=== PATIENT | female | born 1990 | race Two or more races ===

== ENCOUNTER 2017-12-17 00:01 | Emergency (ER) | payer SELFPAY ==
[~2017-12-17] VITALS: Ht 160 cm; Wt 83.9 kg
[2017-12-17 00:04] VITALS: Ht 160 cm; Wt 83.9 kg
[2017-12-17] MEDS ORDERED: CYCLOBENZAPRINE10 MG PO (00:51)
[2017-12-17] MEDS ORDERED: ACETAMINOPHEN500 M1 PO (00:51)
[2017-12-17] MEDS ORDERED: IBUPROFEN800 MG PO (00:51)
[2017-12-17 01:09] VITALS: BP 136/82
== END 2017-12-17 01:09 | disposition home or self-care (01) ==
LOC: D.ER 00:01
DX: S93.401A Sprain of unspecified ligament of right ankle, initial encounter (principal); X50.1XXA Overexertion from prolonged static or awkward postures, initial encounter; Y93.89 Activity, other specified; Y92.019 Unspecified place in single-family (private) house as the place of occurrence of the external cause; M25.571 Pain in right ankle and joints of right foot; F17.200 Nicotine dependence, unspecified, uncomplicated